=== PATIENT | female | born 1940 | race Asian ===

== ENCOUNTER 2020-02-22 11:43 | Inpatient (IN) | payer MEDICARE ==
[~2020-02-22] VITALS: Ht 142.2 cm; Wt 40.8 kg
[2020-02-22 11:45] VITALS: BP 157/79
--- NOTE | 2020-02-22 11:48 | NUR ---
PT C/O LEFT SIDED FACIAL DROOP WITH LEFT SIDED BODY WEAKNESS SINCE 06:30AM THIS MORNING. PT IS ABLE TO RAISE ABDI EYEBROW. LEFT HAND WEAKER ON STRENGTH WITH MILD DYSMETRIA ON [id number]-TEST. PT AMBULATES WITH STEADY GAIT; FULL, SLURRED SPEECH UPON ASSESSMENT. ABDI PUPILS PERRLA. PT IS ABLE TO STICK HER TONGUE OUT AND GO ONE SIDE TO ANOTHER. ARM DRIFT TEST NEGATIVE. AAOX4; PT DENIES ANY FEVER, CP, SOB, OR COUGH AT THIS TIME; PATIENT STATES PAIN OF 0/10 AT THIS TIME; VSS; PATIENT POSITIONED FOR COMFORT; HOB ELEVATED; BEDRAILS UP X2; BED DOWN. ER MD MADE AWARE OF PT STATUS.
--- NOTE | 2020-02-22 11:49 | NUR ---
PATIENT AMBULATED WITH ASSISTANCE TO BED 7. Addendum: 02/22/20 at 1202 by ADIS PATIENT AMBULATED WITH ASSISTANCE TO BED 8
--- NOTE | 2020-02-22 12:04 | NUR ---
DR. PEÑA IS EVALUATING PT AT BEDSIDE.
--- NOTE | 2020-02-22 12:08 | NUR ---
CODE BRAIN CALLED BY DR. PEÑA.
--- NOTE | 2020-02-22 12:10 | NUR ---
ACCOMPANIED PT TO CT SCAN VIA [facility].
--- NOTE | 2020-02-22 12:20 | NUR ---
DR. PEÑA IS RE-EVALUATING PT AT BEDSIDE. CODE BRAIN CANCELED BY DR. PEÑA. TELE CONSUL ORDERED.
[2020-02-22 12:31] LABS: BASOPHILS # (AUTO) 0.1 K/uL (0.00-0.22); BASOPHILS % (AUTO) 0.7 % (0.0-2.0); EOSINOPHILS # (AUTO) 0.1 K/uL (0-0.4); EOSINOPHILS % (AUTO) 0.7 % (0.0-4.0); HEMATOCRIT 46.1 % (36-48); HEMOGLOBIN 15.3 g/dL (12.0-16.0); LYMPHOCYTES # (AUTO) 2.2 K/uL (2.5-16.5); LYMPHOCYTES % (AUTO) 25.6 % (20.5-51.1); MEAN CORPUSCULAR HEMOGLOBIN 31 pg (27-31); MEAN CORPUSCULAR HGB CONC 33 g/dL (33-37); MEAN CORPUSCULAR VOLUME 93.7 fL (80-94); MONOCYTES # (AUTO) 0.5 K/uL (0.8-1.0); MONOCYTES % (AUTO) 6.1 % (1.7-9.3); NEUTROPHILS # (AUTO) 5.6 K/uL (1.8-7.7); NEUTROPHILS % (AUTO) 66.9 % (42.2-75.2); PLATELET COUNT (AUTO) 285 K/uL (140-450); RED BLOOD CELL COUNT(AUTO) 4.92 MIL/uL (4.20-5.40); RED CELL DISTRIBUTION WIDTH 14.1 % (11.6-13.7); WHITE BLOOD COUNT (AUTO) 8.4 K/uL (4.8-10.8)
[2020-02-22 12:50] LABS: PROTHROMBIN TIME 9.3 secs (10.8-13.4)
[2020-02-22 12:58] LABS: ALBUMIN 3.7 g/dL (3.4-5.0); ANION GAP 15.6 (8-16); ASPARTATE AMINOTRANSFERASE 19 U/L (15-37); CARBON DIOXIDE 23.4 mmol/L (21-32); CHLORIDE 103 mmol/L (98-107); CREATININE 1.1 mg/dL (0.6-1.3); GLUCOSE 113 mg/dL (74-106); SODIUM SERUM 138 mmol/L (136-145); TOTAL BILIRUBIN 0.5 mg/dL (0.0-1.0); UREA NITROGEN, BLOOD 18 mg/dL (7-18)
[2020-02-22] MEDS ORDERED: ASPIRIN 325 MG TAB PO ONE (13:00)
--- NOTE | 2020-02-22 13:00 | NUR ---
NEUROLOGIST IS EVALUATING PT VIA TELEMED.
--- NOTE | 2020-02-22 13:17 | NUR ---
CTA HEAD AND NECK CONSENT OBTAINED AT BEDSIDE.
--- NOTE | 2020-02-22 13:30 | NUR ---
SPOKE TO PT'S FAMILY MEMBER JUDITH IN THE LOBBY. GAVE PT HER CELLPHONE FROM JUDITH. @[phone]
--- NOTE | 2020-02-22 13:39 | NUR ---
PT IS BEING TAKEN TO CTA VIA GURNEY ASSITED BY NEWSPAPER SUBSCRIPTION SOLICITOR.
--- NOTE | 2020-02-22 15:08 | NUR ---
PT AMBULATED TO BATHROOM WITH STEADY GAIT.
[2020-02-22 16:10] LABS: APPEARANCE,URINE CLEAR (CLEAR); BILIRUBIN,URINE NEGATIVE (NEGATIVE); BLOOD, URINE NEGATIVE (NEGATIVE); COLOR,URINE YELLOW (YELLOW); LEUKOCYTE ESTERASE ,URINE NEGATIVE (NEGATIVE); NITRITE, URINE NEGATIVE (NEGATIVE); UGLUCOSE NEGATIVE (NEGATIVE)
--- NOTE | 2020-02-22 16:17 | NUR ---
PHONE COMMERCIAL CONSTRUCTION PROJECT MANAGER AND CHANGING CLOSE RECEIVED FROM JUDITH IN THE LOBBY AND GAVE TO PT.
--- NOTE | 2020-02-22 18:50 | NUR ---
DINNER PROVIDED TO PT. PT IS EATING IN THE BED.
--- NOTE | 2020-02-22 19:13 | NUR ---
Pt report given to MICHELLE Guillen. Transfer of care at this time.
--- NOTE | 2020-02-22 19:20 | NUR ---
REPORT GIVEN TO ROMÁN MARTINEZ FOR CONTINUITY OF CARE
--- NOTE | 2020-02-22 19:36 | NUR ---
PT RESTING IN BED TALKING TO FAMILY ON PHONE. PT AAOX4, SPEECH CLEAR, LT SIDED FACIAL DROOP, LT HAND CONSULTING SALES MANAGER WEAK, NO DRIFT NOTED, LIMB ATAXIA WITH LT ARM, SENSATION INTACT, PERRLA 3MM. NIHSS 2 AT THIS TIME.
--- NOTE | 2020-02-22 20:00 | NUR ---
INATAL NOTE: AOX4. UPPER AND LOWER LIMBS STRENGTH EVEN. PATIENT IS AMBULATORY. PT DENIES ANY FEVER, SOB, OR COUGH AT THIS TIME. PATIENT STATES PAIN OF 0/10 AT THIS TIME. PATIENT POSITIONED FOR COMFORT, HOB ELEVATED, BEDRAILS UP X2, BED IN LOWEST POSITION. CALL LIGHT WITHIN REACH. PATIENT ABLE TO VERBALIZE NEEDS.
--- NOTE | 2020-02-22 20:01 | NUR ---
PT RELATIVES CALLED [facility] [phone]. TO CALL AND UPDATE RE: PT . SHE REQUESTED.
--- NOTE | 2020-02-22 20:10 | NUR ---
INITIAL NOTE: RECEIVED PT A/0 X4. RESPIRATIONS EVEN AND UNLABORED ON ROOM AIR. NO SIGNS OF DISTRESS NOTED. PT AMBULATORY. UPPER AND LOWER STRENGTH EVEN. SAFETY PRECAUTIONS IN PLACE: BED IN LOW POSITION, SIDE RAILS UP X2, CALL LIGHT WITHIN REACH, ABLE TO CALL FOR HELP NEEDED. WILL CONTINUE TO MONITOR.
--- NOTE | 2020-02-22 20:10 | NUR ---
Patient will be admitted to care of DR TORRES. Admited to [facility]. Will go to room 107B. Belongings list completed. Report to NATAN MARTINEZ.
--- NOTE | 2020-02-23 | NUR ---
MIDNIGHT NOTE: PATIENT RESTING IN BED. NO SIGNS OF DISTRESS NOTED. NO COMPLAIN OF PAIN. SAFETY PRECAUTIONS IN USE; SIDE RAILS UP X2, BED IN LOW POSITION, CALL LIGHT WITHIN REACH, WILL CONTINUE TO MONITOR.
--- NOTE | 2020-02-23 07:13 | NUR ---
CLOSING NOTE PATIENT AWAKE IN BED. NO SIGNS OF DISTRESS NOTED. NO COMPLAIN OF PAIN. SAFETY PRECAUTIONS IN USE; SIDE RAILS UP X2, BED IN LOW POSITION, CALL LIGHT WITHIN REACH.
--- NOTE | 2020-02-23 07:14 | NUR ---
RECEIVED REPORT FROM NIGHT NURSE. PT AWAKE IN BED. AOX4, NO COMPLAINTS OF PAIN, NO SOB, RESPIRATIONS ARE EVEN AND UNLABORED. ON ROOM AIR. SKIN IS INTACT. ABLE TO MOVE EXTREMITIES WITH NO SIGNS OF WEAKNESS. SPEECH IS CLEAR. ON STANDARD ISOLATION. SAFETY PRECAUTIONS IN PLACE CALL LIGHT WITHIN REACH. WILL CONTINUE TO MONITOR
[2020-02-23 07:48] LABS: BASOPHILS # (AUTO) 0.1 K/uL (0.00-0.22); BASOPHILS % (AUTO) 0.9 % (0.0-2.0); EOSINOPHILS # (AUTO) 0.1 K/uL (0-0.4); EOSINOPHILS % (AUTO) 1.3 % (0.0-4.0); HEMATOCRIT 43.6 % (36-48); HEMOGLOBIN 14.4 g/dL (12.0-16.0); LYMPHOCYTES # (AUTO) 2.2 K/uL (2.5-16.5); LYMPHOCYTES % (AUTO) 35.3 % (20.5-51.1); MEAN CORPUSCULAR HEMOGLOBIN 31 pg (27-31); MEAN CORPUSCULAR HGB CONC 33 g/dL (33-37); MEAN CORPUSCULAR VOLUME 94.6 fL (80-94); MONOCYTES # (AUTO) 0.5 K/uL (0.8-1.0); MONOCYTES % (AUTO) 8.8 % (1.7-9.3); NEUTROPHILS # (AUTO) 3.3 K/uL (1.8-7.7); NEUTROPHILS % (AUTO) 53.7 % (42.2-75.2); PLATELET COUNT (AUTO) 261 K/uL (140-450); RED BLOOD CELL COUNT(AUTO) 4.61 MIL/uL (4.20-5.40); WHITE BLOOD COUNT (AUTO) 6.2 K/uL (4.8-10.8)
[2020-02-23 07:59] LABS: ALBUMIN 3.3 g/dL (3.4-5.0); ANION GAP 10.8 (8-16); ASPARTATE AMINOTRANSFERASE 19 U/L (15-37); CHLORIDE 105 mmol/L (98-107); CREATININE 1.1 mg/dL (0.6-1.3); GLUCOSE 89 mg/dL (74-106); MAGNESIUM 2.2 mg/dL (1.8-2.4); PHOSPHORUS 3.4 mg/dL (2.5-4.9); POTASSIUM 3.8 mmol/L (3.5-5.1); SODIUM SERUM 139 mmol/L (136-145); TOTAL BILIRUBIN 0.6 mg/dL (0.0-1.0); UREA NITROGEN, BLOOD 18 mg/dL (7-18)
[2020-02-23 08:00] VITALS: BP 146/84
[2020-02-23] MEDS ORDERED: AMLO5TAB5 PO (08:36)
[2020-02-23] MEDS ORDERED: ATOR10TA PO (08:36)
[2020-02-23] MEDS ORDERED: MONT10TA35 PO (08:36)
[2020-02-23] MEDS ORDERED: METO100T14 PO (08:36)
[2020-02-23] MEDS ORDERED: MECL-303 PO (08:36)
[2020-02-23] MEDS ORDERED: ATORVASTATIN 80 MG TAB PO SCH (09:00)
--- NOTE | 2020-02-23 09:00 | NUR ---
DUE MORNING MEDS GIVEN ORDERED. TOLERATED PO MEDS WELL
[2020-02-23] MEDS: ASPIRIN 81 MG TAB.CHEW PO SCH (09:09)
[2020-02-23] MEDS: ATORVASTATIN 80 MG TAB PO SCH (09:09)
--- NOTE | 2020-02-23 11:15 | NUR ---
SEEN AND EXAMINED BY DR TORRES. PT'S NIECE, JUDITH, ALSO TALKED TO DR TORRES VIA PHONE.
--- NOTE | 2020-02-23 11:54 | NUR ---
DISCHARGE PLANNING NOTE: APARNA CONTACTED [facility] AND SPOKE TO [employer] MANAGER PHP FOR MRI BRAIN WITHOUT CONTRAST [phone]. YOCASTA REFERRED APARNA TO [facility] MANAGER PHP TO RECEIVE APPROVAL FROM DR. YANG. APARNA INFORMED MANAGER PHP NIRMAL WHO STATED HE WOULD CONTACT [facility]. Addendum: 02/23/20 at 1402 by Brian MILLARD APARNA SPOKE WITH CARLA RUIZ AND FOLLOWED UP WITH MRI. SARA STATED SHE WOULD CONTACT [facility]. Addendum: 02/23/20 at 1555 by Brian MILLARD APARNA SPOKE WITH SARA WHO STATED THAT [facility] WOULD BE AVAILABLE FOR PATIENT'S MRI AT 6PM 02/23/2020.
--- NOTE | 2020-02-23 12:38 | NUR ---
PT AWAKE IN BED EATING LUNCH. NO APPARENT DISTRESS
--- NOTE | 2020-02-23 14:20 | NUR ---
PT AWAKE IN BED. NO COMPLAINTS AT THIS TIME. NO APPARENT DISTRESS
--- NOTE | 2020-02-23 14:46 | NUR ---
TALKED TO DR. FELICIANO APPROVAL FOR MRI OF THE BRAIN WITHOUT CONTRAST, PER MD APPROVED, WILL CALL MRI KNITTING MACHINE TENDER.
--- NOTE | 2020-02-23 15:40 | NUR ---
TALKED TO AMISHA IN [facility], MADE AWARE PT FOR MRI OF THE BRAIN WITHOUT CONTRAST R/O CVA, PER AMISHA TECH IS AVAILABLE TOMORROW AROUND 5PM TO 6PM, AND NEED OF THE ORDER , APPROVAL AND QUESTIONNAIRE TO BE FAX TO THEM [phone]
--- NOTE | 2020-02-23 15:43 | NUR ---
CHARGE NURSE AWARE OF MRI NOT AVAILABLE TODAY, WILL ENDORSED TO PERSONAL INVESTMENT ADVISER TO FOLLOW UP TOMORROW AND ARRANGE TRANSPORT.
[2020-02-23 16:00] VITALS: BP 169/89
--- NOTE | 2020-02-23 16:00 | NUR ---
BP 169/84. CALLED DR TORRES AND ORDERED TO BP MEDS. AMLODIPINE 5MG NOW THEN DAILY. METOPROLOL 50 MG BID
--- NOTE | 2020-02-23 16:01 | NUR ---
LABOR STANDARDS DIRECTOR NOTE: Patient's Orientation Unable To Assess Information Provided By JUDITH BHANDARI Comments SW WAS UNABLE TO MEET PATIENT AT BEDSIDE. Senior Oracle Database Administrator, Realtionship and Phone Number JUDITH BHANDARI [phone] [facility] Power of Licensed Mortician No Does Patient Have a POLST No Identifying Problems No Social Work Triggers Is A Social Work Consult Needed No Mandate Report Filed No Explanation Of Identifying Problems PATIENT IS A 79-YEAR-OLD FEMALEA DMITTED FOR ACUTE ONSET WEAKNESS. PATIENT HAS NO REPORTED PMHX. Admitted From Home Pre-Admission Level Of Functioning Status Independent/Ambulatory Prior Resources/Services Used In Last 12 Months No Prior Resources Used Prior DME No Prior DME Used Living Situation Lives With Friend/Other House Rents A Room Patient Had Caregiver No Home Support No Caregiver Issues Financial Issues No Known Financial Issue Referral To The Financial Counselor Needed No Factors/Needs No D/C Needs Identified Pt/Rep Participated In Discharge Plan Yes Patient/Family Agress With Discharge Plan Yes Discharge Plan Comments TENTATIVE DISCHARGE PLAN IS FOR PATIENT TO RETURN HOME. DC Plan Status Initiated
[2020-02-23] MEDS: amLODIPine 5 MG TAB PO SCH (16:25)
--- NOTE | 2020-02-23 17:09 | NUR ---
FAXED MRI QUESTIONNAIRE AND ORDER OF MRI BRAIN TO [facility] , PER AMISHA SHE GOT IT.
[2020-02-23] MEDS ORDERED: METOPROLOL 50 MG TAB ONE (17:24)
[2020-02-23] MEDS: METOPROLOL 50 MG TAB PO SCH (17:25)
--- NOTE | 2020-02-23 18:25 | NUR ---
PT IN BED EATING DINNER. NO C/O PAIN. NO C/O WEAKNESS, NO SOB.
--- NOTE | 2020-02-23 19:33 | NUR ---
ENDORSED TO ADVERTISING ANALYST FOR CONTINUITY OF CARE
--- NOTE | 2020-02-23 19:45 | NUR ---
RECEIVED THE REPORT FROM THE DAY RN REGARDING THE PT FOR CONTINUITY OF CARE. PATIENT WAS SITTING ON THE CHAIR AND STATED THAT HER DASILVA CATHETER FEELS LIKE ITS SLIPPING OUT. THE DAY RN TO INFLATED THE DASILVA BALLOON WITH 5 CC NS. INSTRUCTED THE PT TO CALL RN IF SHE FEELS THAT HER DASILVA CATHETER STILL FEELS LIKE SLIPPING OUT. OTHERWISE NO OTHER COMPLAIN AT THIS TIME. DENIES ANY PAIN. NO SIGN AND SYMPTOMS OF DISTRESS NOTED. CALL LIGHT WITHIN REACH. WILL CONTINUE POC.
--- NOTE | 2020-02-23 21:00 | NUR ---
ENDORSED THE PATIENT TO MICHELLE PEREIRA FOR CONTINUITY OF CARE. PATIENT STABLE. LAYING IN BED WATCHING TV. BED IN LOW POSITION.CALL LIGHT WITHIN REACH. SIGNING OFF.
--- NOTE | 2020-02-23 21:29 | NUR ---
RECEIVED PT SLEEPING, VISIBLE CHEST RISE AND FALL, NO SIGNS OF DISTRESS, FOR MRI OF THE BRAIN TOMORROW AFTERNOON 02/24/20 AT [facility], CALL LIGHT WITHIN REACH.
[2020-02-24] VITALS: BP 150/70
--- NOTE | 2020-02-24 | NUR ---
PT SLEEPING, EASILY AROUSABLE, AAOX4, VITAL SIGNS TAKEN, BP SLIGHTLY ELEVATED, ASYMPTOMATIC, DENIES ANY PAIN AND SOB NOTED, PT WENT BACK TO SLEEP, CONTINUE TO MONITOR CLOSELY.
--- NOTE | 2020-02-24 03:30 | NUR ---
SEEN PT SLEEPING, VISIBLE CHEST RISE AND FALL, NO DISTRESS NOTED, MONITORED CLOSELY.
--- NOTE | 2020-02-24 05:10 | NUR ---
PT AMBULATED TO BR WITH STANDBY ASSIST, WITH STEADY GAIT, VOIDED FREELY, BACK TO BED INDEPENDENTLY, STATED NO DIZZINESS OR HEADACHE, MONITORED CLOSELY.
--- NOTE | 2020-02-24 07:50 | NUR ---
PT SLEEPING, NO SIGNS OF DISTRESS, REPORT GIVEN TO MICHELLE RANDOLPH FOR CONTINUITY OF CARE.
--- NOTE | 2020-02-24 09:23 | NUR ---
PATIENT HAS BEEN SCREENED AND CATEGORIZED MODERATE NUTRITION RISK. PATIENT WILL BE SEEN WITHIN 3-5 DAYS OF ADMISSION. 02/25/20 02/27/[address]
[2020-02-24 10:06] VITALS: BP 158/85
[2020-02-24] MEDS: ATORVASTATIN 80 MG TAB PO SCH (10:15)
[2020-02-24] MEDS: amLODIPine 5 MG TAB PO SCH (10:15)
[2020-02-24] MEDS: METOPROLOL 50 MG TAB PO SCH ×2 (10:15→22:23)
[2020-02-24] MEDS: ASPIRIN 81 MG TAB.CHEW PO SCH (10:15)
--- NOTE | 2020-02-24 13:34 | NUR ---
P.T. NOTES P.T. EVAL COMPLETED; REFER TO EVAL FOR DETAILS; AMBULATORY WITHOUT ASST DEVICE; ENDORSED TO NURSING.
--- NOTE | 2020-02-24 13:47 | NUR ---
DC PLANNING 79 YRS OLD FEMALE PATIENT WAS ADMITTED FROM HOME WITH A DX OF ACUTE ONSET WEAKNESS RULE OUT CVA. PATIENT HAS A HX OF HTN. PT HAS AN ORDER OF MRI OF THE BRAIN . CALLED [facility], FAXED TO [employer] UNABLE TO VERIFY THE ADDRESS ON THE FACE SHEET AND THE ID NOT MATCHING . TRANSFERD ME TO THE ELIGIBILITY DEPARTMENT. SPOKE WITH HARI JOAQUIN # [phone] REQUESTED THE CLINICALS TO BE FAXED TO [phone] [employer]ER[employer] FAXED CM TO FOLLOW. Addendum: 02/24/20 at 1452 by Nicole Beard CM DC PLANNING: CALLED [employer] SPOKE WITH MEHUL Muse REF # [phone] SHE WAS ABLE TO SEE WITH THE TRACKING NUMBER STILL WAITING FOR THE APPROVAL THEY PLACE IT URGENT .CM TO FOLLOW Addendum: 02/25/20 at 1205 by Nicole Beard CM DC PLANNING: MRI SCHEDULED AT 5:30 AT [facility], ARRANGE TRANSPORT WITH SHIRA [facility] APPAREL PATTERN MAKER TIME 4:45 NOT[address] DIANA MARTINEZ AND DR COBIAN.CM TO FOLLOW Addendum: 02/25/20 at 1210 by Nicole Beard CM DC PLANNING: CALLED [facility] [phone] SPOKE WITH [facility] MACHINE OPERATOR STATED NO NEED THE AUTHORIZATION SINCE IT IS MEDICARE DRG DAYS AND ALSO [place] IS [facility] NO NEED FOR AUTH. CALLED SADE AT [facility] MRI NOTIFIED HER AND PER SADE IT'S OK TO SEND PATIENT. CM TO FOLLOW
[2020-02-24 16:30] VITALS: BP 132/76
--- NOTE | 2020-02-24 18:43 | NUR ---
DUE TO INSURANCE ISSUES, MRI NOT DONE PER ANTELMO CHARGE NURSE. PATIENT UPDATED. REMAINS STABLE, RIGHT FACIAL DROOP REMAINS SAME. STRENGTH HAS NOT CHANGE SINCE ASSESSMENT TODAY.
--- NOTE | 2020-02-24 19:30 | NUR ---
RECEIVED REPORT FROM DONYA RANDOLPH RN REGARDING THE PT FOR CONTINUITY OF CARE. PATIENT LYING DOWN, AWAKE, ALERT O, X 4, AMBULATORY. PATIENT HAS L FA G 20; SALINE LOCK. DENIES ANY PAIN. NO SIGN AND SYMPTOMS OF DISTRESS NOTED. CALL LIGHT WITHIN REACH. WILL CONTINUE POC.
--- NOTE | 2020-02-24 20:55 | NUR ---
CHECKED ON PATIENT, LYING ON ONE SIDE, ABLE TO TUNE FROM SIDE TO SIDE, BU HERSELF. NO SIGN AND SYMPTOMS OF RESPIRATORY DISTRESS, WILL CONTINUE TO MONITOR
[2020-02-24 21:00] VITALS: BP 153/85
--- NOTE | 2020-02-24 23:05 | NUR ---
PATIENT WENT TO BATHROOM, STEADY GAIT, AMBULATORY WILL CONTINUE TO MONITOR
--- NOTE | 2020-02-25 00:15 | NUR ---
PATIENT SLEEPING, DENIES PAIN, NO SIGNS OF RESPIRATORY DISTRESS
--- NOTE | 2020-02-25 02:16 | NUR ---
NO S/ SX'S OF RESPIRATORY DISTRESS, DENIES PAIN , WILL CONTINUE TO MONITOR
[2020-02-25 04:00] VITALS: BP 118/64
--- NOTE | 2020-02-25 05:28 | NUR ---
PT IS SLEEPING, NO S/ SX;S OF RESPIRATORY DISTRESS, DENIES PAIN, WILL CONTINUE TO MONITOR PATIENT
--- NOTE | 2020-02-25 06:54 | NUR ---
PT A, AO , AMBULATORY W/ STANDBY ASSIST; NO SIGNS OF RESPIRATORY DISTRESS, DENIES PAIN, WILL ENDORSE TO NEXT SHIFT. STILL AWAITING MRI BRAIN TO BE TAKEN, PENDING INSURANCE ISSUES.
--- NOTE | 2020-02-25 07:40 | NUR ---
PT A/OX4. AMBULATORY WITH STANDBY ASSIST. SINUS RHYTHM. LUNGS CLEAR BILAT. RESPIRATIONS EVEN AND UNLABORED. 20G IV IN R AC, CLEAN DRY INTACT. SAFETY PRECAUTIONS IN PLACE, BED IN LOW POSITION, CALL LIGHT IN REACH. WILL CONTINUE TO MONITOR.
--- NOTE | 2020-02-25 08:30 | NUR ---
GIVEN MORNING MEDS. PT TOLERATED. NO ACUTE DISTRESS NOTED. WILL CONTINUE TO MONITOR.
[2020-02-25] MEDS: amLODIPine 5 MG TAB PO SCH (08:44)
[2020-02-25] MEDS: ATORVASTATIN 80 MG TAB PO SCH (08:44)
[2020-02-25] MEDS: METOPROLOL 50 MG TAB PO SCH ×2 (08:44→21:38)
[2020-02-25] MEDS: ASPIRIN 81 MG TAB.CHEW PO SCH (08:45)
[2020-02-25] MEDS ORDERED: ASPI81CT95 PO (09:21)
--- NOTE | 2020-02-25 12:30 | NUR ---
PT EATING LUNCH. PT NOTIFIED OF EXPECTED MRI TIME. NO ACUTE DISTRESS NOTED.
[2020-02-25 12:54] VITALS: BP 136/80
--- NOTE | 2020-02-25 14:14 | NUR ---
PT ASLEEP. NO ACUTE DISTRESS NOTED.
--- NOTE | 2020-02-25 16:00 | NUR ---
PATIENT OFF UNIT TO [facility] FOR MRI. [facility] TRANSPORT Addendum: 02/25/20 at 1704 by Princess Chel Jurado RN CORRECT TIME: 1700
[2020-02-25 16:48] VITALS: BP 154/90
--- NOTE | 2020-02-25 17:00 | NUR ---
[facility] ARRIVED TO TRANSPORT PT TO TUTOR KEY FOR MRI. PT IN STABLE CONDITION
--- NOTE | 2020-02-25 18:35 | NUR ---
JUDITH, NIECE, OF PATIENT IS ASKING IF IT IS POSSIBLE FOR THE PATIENT TO STAY TONIGHT AFTER MRI BECAUSE SHE IS FROM [place]. WILL CALL HER BACK. HER PHONE #: [phone]
--- NOTE | 2020-02-25 18:50 | NUR ---
PT BROUGHT BACK TO UNIT VIA [facility]. AWAITING MRI RESULTS.
--- NOTE | 2020-02-25 18:50 | NUR ---
PATIENT IS BACK FROM [place] FOR MRI.
--- NOTE | 2020-02-25 19:25 | NUR ---
ENDORSED PT TO NIGHT RN FOR CONTINUITY OF CARE. PT IN STABLE CONDITION
--- NOTE | 2020-02-25 19:26 | NUR ---
RECEIVED PT FROM , MICHELLE AND MONY. RN . PT AAO X 4, AMBULATORY WITH STANDBY ASSIST. WITH 20G IV IN R AC, CLEAN DRY INTACT. AWAITING RESULTS OF MRI PER ENDORSEMENT BEFORE DISCHARGE.SAFETY PRECAUTIONS IN PLACE, BED IN LOW POSITION, CALL LIGHT IN REACH. WILL CONTINUE TO MONITOR.
[2020-02-25 20:00] VITALS: BP 154/97
--- NOTE | 2020-02-25 21:16 | NUR ---
MRI HEAD RESULT: PER ATTECHED COPY. DR. STONE, INFORMED AND HE SAID OK TO DISCHARGE PATIENT
--- NOTE | 2020-02-25 21:38 | NUR ---
ADMINISTERED DUE MEDS, BP 154/97, HR 63, 97.7 AFEBRILE, O2 SAT 98%; 18, DENIES PAIN.
--- NOTE | 2020-02-25 22:00 | NUR ---
PATENT'S DOCUMENTS GIVEN AND SIGNED BY PATIENT. EDUCATION DONE, AND HEALTH TEACHINGS DONE. PT'S FRIEND PICKING HER UP.
--- NOTE | 2020-02-25 22:10 | NUR ---
DISCONTINUED IV SITE, ON THE RIGHT AC, NO BLEEDING , NO PAIN PER PATIENT, NO SWELLING NOTED. PT DRESSED UP IN HER CLOTHES, THINGS ON HER LAP IN PREPARATION FOR DISCHARGE. GAVE HER THE COPY OF THE DISCHARGE PAPERS, INCLUDING THE MRI RESULT.
--- NOTE | 2020-02-25 22:25 | NUR ---
PT LEFT HOSPITAL, ESCORTED TO THE EXIT BY ANJEL [facility]IN[facility], PICKED UP BY A FRIEND.
== END 2020-02-25 22:25 | disposition home or self-care (01) | DRG 69 ==
LOC: MED 11:43 → MTU 18:03 → UNDOADMIN 18:03 → MTU 20:03 → OBSVTOIN 02-23 11:10
PROVIDERS: ADMIT Internal Medicine Pulmonary Disease; ATTEND Internal Medicine Pulmonary Disease
DX: G45.9 Transient cerebral ischemic attack, unspecified (principal); I10 Essential (primary) hypertension
CPT/HCPCS: 99291; 99292; G0378; 36415; 70450; 71045; 80053; 81003; 83735; 84100; 84484; 85025; 85610; 85730; 86886; 86900; 86901; 87081; 93005; 97161-GP; J1644; Q0092; Q9967